=== PATIENT | female | born 1975 | race Hispanic/Latino ===

== ENCOUNTER 2018-10-29 09:51 | Observation (INO) | payer OTHER ==
[2018-10-29 10:41] LABS: Arterial Blood Carboxyhemoglob 0.9 % (0-1.5); Blood Gas Oxyhemoglobin 93.5 % (94-97); Blood O2 Saturation 95.2 % (92-98.5)
--- NOTE | 2018-10-29 11:08 | RAD REPORT ---
EXAM DESCRIPTION: RAD - Chest Pa And Lat (2 Views) - 10/29/2018 11:02 am CLINICAL HISTORY: COUGH Chest pain. COMPARISON: Chest Pa And Lat (2 Views) dated 10/17/2017; Chest Pa And Lat (2 Views) dated 10/09/2017 ; CHEST PA AND LAT 2 VIEW dated 07/28/2014; CHEST PA AND LAT 2 VIEW dated 02/05/2011 FINDINGS: The lungs are clear. The heart is normal in size. No displaced fractures. IMPRESSION: No acute or concerning finding suspected.
[2018-10-29] MEDS ORDERED: HYDROCODONE/CHLORPHEN 5 ML/OSYR ONE (11:14)
--- NOTE | 2018-10-29 12:05 | RAD REPORT ---
EXAM DESCRIPTION: CT - Chest For Pe Angio - 10/29/2018 11:46 am CLINICAL HISTORY: Chest pain. Cough;SOB COMPARISON: <Comparisons> TECHNIQUE: CT angiogram of the pulmonary arteries was performed with MIP. All CT scans are performed using dose optimization technique as appropriate and may include automated exposure control or mA/KV adjustment according to patient size. FINDINGS: No evidence of pulmonary thromboembolism. No acute aortic finding demonstrated. The lungs are clear. No significant pericardial or pleural fluid. No concerning bony finding. IMPRESSION: No evidence of pulmonary thromboembolism. No acute lung findings.
--- NOTE | 2018-10-29 12:24 | EDPHYS ---
Physician Documentation [facility] Name: Young Long Age: 43 yrs Sex: Female : 1975 Arrival Date: 10/29/2018 Time: 09:53 Bed 6 Private MD: Kofi Vizcaino E ED Physician Isael Jj HPI: 10/29 11:25 This 43 yrs old Female presents to ER via Ambulatory with complaints of Asthma snw Exacerbation, Cough. 11:25 The patient presents to the emergency department with wheezing, Current therapy: snw albuterol inhaler, oral steroids, steroid inhaler, Singulair, the patient was reported to have audible wheezing, trouble breathing. Onset: The symptoms/episode began/occurred gradually, 3 week(s) ago, and became worse today, and became persistent. Associated signs and symptoms: The patient has no apparent associated signs or symptoms. Severity of symptoms: At their worst the symptoms were mild moderate. The patient has experienced similar episodes in the past. The patient has been recently seen by a physician: the patient's primary care provider, Dr. Ramirez. Historical: - Allergies: 10:17 No Known Allergies; ss - PMHx: 10:17 Asthma; Bronchitis; ss - PSHx: 10:17 ; ss - Immunization history:: Adult Immunizations up to date, Pneumococcal vaccine is not up to date, it has been more than five years since last vaccine, Flu vaccine is not up to date. It has been more than one year since last vaccine. - Social history:: Smoking status: Patient/guardian denies using tobacco. - Ebola Screening: : Patient denies exposure to infectious person Patient denies travel to an Ebola-affected area in the 21 days before illness onset. ROS: 11:26 Constitutional: Negative for fever, chills, and weight loss, Eyes: Negative for injury, snw pain, redness, and discharge, ENT: Negative for injury, pain, and discharge, Neck: Negative for injury, pain, and swelling, Cardiovascular: Negative for chest pain, palpitations, and edema, Abdomen/GI: Negative for abdominal pain, nausea, vomiting, diarrhea, and constipation, Back: Negative for injury and pain, : Negative for injury, bleeding, discharge, and swelling, MS/Extremity: Negative for injury and deformity, Skin: Negative for injury, rash, and discoloration, Neuro: Negative for headache, weakness, numbness, tingling, and seizure. 11:26 Respiratory: Positive for cough, shortness of breath, wheezing, expiratory, of the left posterior lower lobe, right posterior middle lobe and right posterior lower lobe. Exam: 11:27 Constitutional: This is a well developed, well nourished patient who is awake, alert, snw and in no acute distress. Head/Face: Normocephalic, atraumatic. Eyes: Pupils equal round and reactive to light, extra-ocular motions intact. Lids and lashes normal. Conjunctiva and sclera are non-icteric and not injected. Cornea within normal limits. Periorbital areas with no swelling, redness, or edema. ENT: Nares patent. No nasal discharge, no septal abnormalities noted. Tympanic membranes are normal and external auditory canals are clear. Oropharynx with no redness, swelling, or masses, exudates, or evidence of obstruction, uvula midline. Mucous membranes moist. Neck: Trachea midline, no thyromegaly or masses palpated, and no cervical lymphadenopathy. Supple, full range of motion without nuchal rigidity, or vertebral point tenderness. No Meningismus. Chest/axilla: Normal chest wall appearance and motion. Nontender with no deformity. No lesions are appreciated. Cardiovascular: Regular rate and rhythm with a normal S1 and S2. No gallops, murmurs, or rubs. Normal PMI, no JVD. No pulse deficits. Respiratory: Lungs have equal breath sounds bilaterally, expiratory wheezes to auscultation. No rales, rhonchi noted. + wheezing, No increased work of breathing, no retractions or nasal flaring. Abdomen/GI: Soft, non-tender, with normal bowel sounds. No distension or tympany. No guarding or rebound. No evidence of tenderness throughout. Back: No spinal tenderness. No costovertebral tenderness. Full range of motion. Skin: Warm, dry with normal turgor. Normal color with no rashes, no lesions, and no evidence of cellulitis. MS/ Extremity: Pulses equal, no cyanosis. Neurovascular intact. Full, normal range of motion. Neuro: Awake and alert, GCS 15, oriented to person, place, time, and situation. Cranial nerves II-XII grossly intact. Motor strength 5/5 in all extremities. Sensory grossly intact. Cerebellar exam normal. Normal gait. Vital Signs: 10:17 BP 135 / 89; Pulse 85; Resp 16; Temp 98.1(TE); Pulse Ox 99% on R/A; Weight 79.38 kg; ss Height 5 ft. 4 in. (162.56 cm); Pain 9/10; 11:06 BP 118 / 79; Pulse 76; Resp 18; Pulse Ox 95% on R/A; ca1 12:15 BP 112 / 78; Pulse 71; Resp 21; Pulse Ox 95% on R/A; Pain 5/10; ca1 13:15 BP 120 / 75; Pulse 76; Resp 21; Pulse Ox 96% on R/A; ca1 14:15 BP 130 / 84; Pulse 70; Resp 21; Pulse Ox 96% on R/A; ca1 10:17 Body Mass Index 30.04 (79.38 kg, 162.56 cm) ss MDM: 10:22 Patient medically screened. snw 12:23 Data reviewed: vital signs, nurses notes. Data interpreted: Pulse oximetry: on room air snw is 95 %. Interpretation: acceptable. Counseling: I had a detailed discussion with the patient and/or guardian regarding: the historical points, exam findings, and any diagnostic results supporting the discharge/admit diagnosis, lab results, radiology results, the need for further work-up and treatment in the hospital. Physician consultation: Jesus Medina MD was called at 12:24, was contacted at 12:24, regarding admission, to the telemetry unit. observation, failed outpatient therapy. 15:31 ED course: Pt of Geri Ramirez, not Dr. Ramirez. Obs orders changed to admitting Dr. suresh Fields. 10/29 10:24 Order name: ABG; Complete Time: 11:04 snw 10/29 15:02 Order name: ABG snw 10/29 10:24 Order name: Chest Pa And Lat (2 Views) XRAY; Complete Time: 11:10 snw 12 11:14 Order name: CT Chest For PE Angio; Complete Time: 12:06 snw 10/29 15:34 Order name: ABG Arterial Blood Gas; Complete Time: 15:39 EDMS Administered Medications: 10:58 Drug: Tussionex Pennkinetic ER 5 ml Route: PO; ca1 13:35 Follow up: Response: No adverse reaction ca1 13:01 Drug: NS 0.9% 1000 ml Route: IV; Rate: 1 bolus; Site: right antecubital; ca1 Disposition: 10/30 06:38 Co-signature as Attending Physician, Isael Jj MD I agree with the assessment and brittaney plan of care. Disposition: 10/29/18 12:23 Hospitalization ordered by Mariela Fields for Observation. Preliminary diagnosis are Unspecified asthma with (acute) exacerbation - failed outpatient therapy, Hypoxemia. - Bed requested for Telemetry/MedSurg (observation). - Status is Observation. ss - Condition is Stable. - Problem is an acute exacerbation. - Symptoms are unchanged. UTI on Admission? No Signatures: Dispatcher [employer] EDMS Griselda Del Rosario Corey, MD MD cha Therrien, Shelly, PODIATRIC PHYSICIAN-C PODIATRIC PHYSICIAN-Csnw Maia Holt RN RN ss Mi Gillette RN RN ca1 Corrections: (The following items were deleted from the chart) 10/29 13:27 12:23 Hospitalization Ordered by Jesus Medina MD for Observation. Preliminary diagnosis bd is Unspecified asthma with (acute) exacerbation - failed outpatient therapy; Hypoxemia. Bed requested for Telemetry/MedSurg (observation). Status is Observation. Condition is Stable. Problem is an acute exacerbation. Symptoms are unchanged. UTI on Admission? No. snw 15:32 13:27 10/29/2018 12:23 Hospitalization Ordered by Jesus Medina MD for Observation. snw Preliminary diagnosis is Unspecified asthma with (acute) exacerbation - failed outpatient therapy; Hypoxemia. Bed requested for Telemetry/MedSurg (observation). Status is Observation. Condition is Stable. Problem is an acute exacerbation. Symptoms are unchanged. UTI on Admission? No. bd 16:01 15:32 10/29/2018 12:23 Hospitalization Ordered by Mariela Fields MD for Observation. ss Preliminary diagnosis is Unspecified asthma with (acute) exacerbation - failed outpatient therapy; Hypoxemia. Bed requested for Telemetry/MedSurg (observation). Status is Observation. Condition is Stable. Problem is an acute exacerbation. Symptoms are unchanged. UTI on Admission? No. snw
--- NOTE | 2018-10-29 12:24 | ER ---
Nurse's Notes [facility] Name: Young Long Age: 43 yrs Sex: Female : 1975 Arrival Date: 10/29/2018 Time: 09:53 Bed 6 Private MD: Kofi Vizcaino E Diagnosis: Unspecified asthma with (acute) exacerbation-failed outpatient therapy;Hypoxemia Presentation: 10/29 10:14 Presenting complaint: Patient states: cough x 3 weeks. Pt reports she has a lot of ss medication, and nothing seems to be working. Transition of care: patient was not received from another setting of care. Onset of symptoms. Onset of symptoms was October 08, 2018. Risk Assessment: Do you want to hurt yourself or someone else? Patient reports no desire to harm self or others. Initial Sepsis Screen: Does the patient meet any 2 criteria? No. Patient's initial sepsis screen is negative. Does the patient have a suspected source of infection? Yes: Productive cough/pneumonia. Care prior to arrival: None. 10:14 Method Of Arrival: Ambulatory ss 10:14 Acuity: BERTIN 3 ss Historical: - Allergies: 10:17 No Known Allergies; ss - PMHx: 10:17 Asthma; Bronchitis; ss - PSHx: 10:17 ; ss - Immunization history:: Adult Immunizations up to date, Pneumococcal vaccine is not up to date, it has been more than five years since last vaccine, Flu vaccine is not up to date. It has been more than one year since last vaccine. - Social history:: Smoking status: Patient/guardian denies using tobacco. - Ebola Screening: : Patient denies exposure to infectious person Patient denies travel to an Ebola-affected area in the 21 days before illness onset. Screenin:20 Abuse screen: Denies threats or abuse. Nutritional screening: No deficits noted. ca1 Tuberculosis screening: No symptoms or risk factors identified. Fall Risk None identified. Assessment: 10:15 General: Appears in no apparent distress. uncomfortable, Behavior is calm, cooperative. ca1 Pain: Complains of pain in back of head Pain does not radiate. Pain currently is 8 out of 10 on a pain scale. Quality of pain is described as aching, Pain began 1 day ago. Is continuous. Neuro: Level of Consciousness is awake, alert, obeys commands, Oriented to person, place, time. Cardiovascular: Heart tones S1 S2 present. Respiratory: Airway is patent Trachea midline Respiratory effort is even, unlabored, Respiratory pattern is regular, symmetrical, Breath sounds are coarse bilaterally. in left posterior upper lobe and right posterior upper lobe Breath sounds with wheezes bilaterally. in left posterior upper lobe and right posterior upper lobe. GI: Abdomen is flat, Bowel sounds present X 4 quads. Abd is soft and non tender X 4 quads. : No signs and/or symptoms were reported regarding the genitourinary system. Derm: Skin is pink, warm \T\ dry. Musculoskeletal: No signs and/or symptoms reported regarding the musculoskeletal system. 15:04 Reassessment: Report given to AMEE Blood. Tasha Whitlock NP reports that Dr. Medina has called and directed Tasha to admit patient to Dr. Fields. Dr. Fields would like to discharge patient from the ED if a repeat ABG has improved. Admission is delayed while awaiting for repeat ABG. Vital Signs: 10:17 BP 135 / 89; Pulse 85; Resp 16; Temp 98.1(TE); Pulse Ox 99% on R/A; Weight 79.38 kg; ss Height 5 ft. 4 in. (162.56 cm); Pain 9/10; 11:06 BP 118 / 79; Pulse 76; Resp 18; Pulse Ox 95% on R/A; ca1 12:15 BP 112 / 78; Pulse 71; Resp 21; Pulse Ox 95% on R/A; Pain 5/10; ca1 13:15 BP 120 / 75; Pulse 76; Resp 21; Pulse Ox 96% on R/A; ca1 14:15 BP 130 / 84; Pulse 70; Resp 21; Pulse Ox 96% on R/A; ca1 10:17 Body Mass Index 30.04 (79.38 kg, 162.56 cm) ED Course: 09:53 Patient arrived in ED. as 09:54 Kofi Vizcaino MD is Private Physician. as 10:06 Tasha Whitlock FNP-C is [facility]. snw 10:06 Isael Jj MD is Attending Physician. snw 10:13 Alejo Charles, RN is Primary Nurse. bp 10:16 Triage completed. ss 10:17 Arm band placed on right wrist. ss 10:20 Primary Nurse role handed off by Alejo Charles, RN ca1 10:20 Mi Gillette, AMEE is Primary Nurse. ca1 10:20 Placed in gown. Bed in low position. Call light in reach. Side rails up X2. ca1 11:02 Chest Pa And Lat (2 Views) XRAY In Process Unspecified. EDMS 11:22 Radiology exam delayed due to IV insertion attempt and/or patient not having eh appropriate IV at this time. 11:30 Inserted saline lock: 20 gauge in right antecubital area, using aseptic technique. ca1 11:45 CT completed. Patient tolerated procedure well. Patient moved back from CT. eh 11:46 CT Chest For PE Angio In Process Unspecified. EDMS 12:22 Jesus Medina MD is Hospitalizing Provider. snw 13:00 No provider procedures requiring assistance completed. ca1 15:32 Hospitalizing Provider role handed off by Jesus Medina MD snw 15:32 Mariela Fields MD is Hospitalizing Provider. snw 16:00 Patient admitted, IV remains in place. ss Administered Medications: 10:58 Drug: Tussionex Pennkinetic ER 5 ml Route: PO; ca1 13:35 Follow up: Response: No adverse reaction ca1 13:01 Drug: NS 0.9% 1000 ml Route: IV; Rate: 1 bolus; Site: right antecubital; ca1 Outcome: 12:23 Decision to Hospitalize by Provider. snw 16:00 Admitted to Tele accompanied by [facility], via wheelchair, room 214, with chart, Report ss called to AMEE Blood 16:00 Condition: good 16:00 Instructed on the need for admit. 16:01 Patient left the ED. ss Signatures: Dispatcher [employer] EDMS Tasha Whitlock, INNER TUBE CUTTER-C INNER TUBE CUTTER-Csnw Jeanmarie Thibodeaux Amelia as Smirch, Shelby, RN RN Alejo Charles, AMEE LUBIN bp Mi Gillette, AMEE RN ca1 Corrections: (The following items were deleted from the chart) 13:37 13:36 Abuse screen: Denies threats or abuse. ca1 ca1 13:37 13:36 Nutritional screening: No deficits noted. ca1 ca1 13:37 13:36 Tuberculosis screening: No symptoms or risk factors identified. ca1 ca1 13:37 13:36 Fall Risk None identified. ca1 ca1
[2018-10-29] MEDS ORDERED: NA CHLORIDE 0.9% 1,000 ML ONE (13:00)
[2018-10-29 15:26] LABS: Arterial Blood Carboxyhemoglob 0.9 % (0-1.5); Blood Gas Oxyhemoglobin 94.7 % (94-97); Blood O2 Saturation 96.3 % (92-98.5)
[2018-10-29] MEDS ORDERED: HYDROCODONE/APAP 5/325 MG TAB PO PRN (15:40)
[2018-10-29] MEDS ORDERED: ALBUTEROL 2.5 MG/3 ML NEB SOL NEB SCH (15:40)
[2018-10-29] MEDS ORDERED: IPRATROPIUM BROM 0.5MG/2.5ML NEB SCH (16:00)
[2018-10-29] MEDS ORDERED: IPRATROPIUM BROM 0.5MG/2.5ML NEB PRN (16:13)
[2018-10-29] MEDS ORDERED: ALBUTEROL 2.5 MG/3 ML NEB SOL NEB PRN (16:13)
--- NOTE | 2018-10-29 16:40 | P.HP ---
Certification for Inpatient Patient admitted to: Observation With expected LOS: <2 Midnights Patient will require the following post-hospital care: None Practitioner: I am a practitioner with admitting privileges, knowledge of patient current condition, hospital course, and medical plan of care. Services: Services provided to patient in accordance with Admission requirements found in Title 42 Section 412.3 of the Code of Federal Regulations Patient History Date of Service: 10/29/18 Primary Care Provider: Dr Morrow Reason for admission: SOB History of Present Illness: This is a 43-year-old female with significant past medical history of asthma who presented to the ED with the patient. Patient stated that she has been having some shortness of breath for past couple of weeks and has been getting progressively worse. Patient had a son who had viral illness and she caught something from him and have her since then she has not been able to resolve her asthma exacerbation. Patient does see Dr. Ramirez forms office. She was seen at the office possible pneumonia. Antibiotics did complete an along with the steroids that she was given as well. Patient states that she still has no resolution from diet. Patient thus had to the ER if the outpatient therapy. Patient stated that she ran out of her maintenance inhaler about 4 days ago as well and has not been able to refill it due to her insurance change. Patient states that she is very fresh treated with the asthma exacerbation and not being able to get well and get back to work. In the ER patient was seen and was noted to have increased wheezing bilaterally along with audible wheezing as well. Patient thus was admitted to the hospital for further workup and treatment of her asthma exacerbation Allergies No Known Allergies Allergy (Unverified 02/25/17 20:50) - Past Medical/Surgical History -: Asthma Past Surgical History: Reviewed- Non-Contributory - Family History Family History: Reviewed- Non-Contributory Review of Systems 10-point ROS is otherwise unremarkable Physical Examination - Vital Signs Temperature: 98.1 F Blood Pressure: 130/84 Pulse: 70 Respirations: 21 - Physical Exam General: Alert, Acute distress HEENT: Atraumatic, PERRLA, Mucous membr. moist/pink, EOMI, Sclerae nonicteric Neck: Supple, 2+ carotid pulse no bruit, No LAD, Without JVD or thyroid abnormality Respiratory: Normal air movement, Expiratory wheezes, Inspiratory wheezes Cardiovascular: Regular rate/rhythm, Normal S1 S2 Gastrointestinal: Normal bowel sounds, No tenderness Musculoskeletal: No tenderness Integumentary: No rashes Neurological: Normal gait, Normal speech, Normal strength at 5/5 x4 extr, Normal tone, Normal affect Lymphatics: No axilla or inguinal lymphadenopathy Assessment and Plan - Problems (Diagnosis) (1) Asthma exacerbation Current Visit: Yes Status: Acute Plan: Acute Asthma Exacerbation 2.2 to Viral Illness -Duonebs, Steriods and Oxygen for now -Pulmonology consulted. Awaiting reccs -Peak Flow 350 Qualifiers: Asthma severity: moderate Asthma persistence: persistent Qualified Code(s ): J45.41 - Moderate persistent asthma with (acute) exacerbation - Plan Patient will be admitted to medical-surgical floor for asthma exacerbation Discharge Plan: Home Plan to discharge in: 48 Hours - Advance Directives Does patient have a Living Will: No Does patient have a Durable POA for Healthcare: No - Code Status/Comfort Care Code Status Assessed: Yes Critical Care: No
[2018-10-29] MEDS ORDERED: INFLUENZA VACCINE (for 3y+) 0.5 ML DOSE IMVAC ONE (18:00)
[2018-10-29] MEDS ORDERED: PNEUMOCOCCAL VACCINE 0.5 ML IMVAC ONE (18:00)
[2018-10-29 19:21] LABS: Urine Appearance CLEAR; Urine Bilirubin NEGATIVE (NEG); Urine Blood NEGATIVE (NEG); Urine Color YELLOW; Urine Glucose NEGATIVE (NEG); Urine Protein NEGATIVE (NEG); Urine Specific Gravity >=1.030 (1.005-1.030); Urine Urobilinogen 0.2 mg/dL (0.2-1.0); Urine pH 6.5 (5.0-7.0)
[2018-10-29 19:31] LABS: Urine Bacteria NONE SEEN /HPF (<20); Urine Culture Reflex Order NOT NEEDED; Urine RBC NONE SEEN /HPF (NONE SEEN)
[2018-10-29] MEDS: BENZONATATE 100 MG CAP PO PRN (20:17)
[2018-10-29] MEDS: FAMOTIDINE 20 MG TAB PO SCH (20:17)
[2018-10-29] MEDS: ALBUTEROL 2.5 MG/3 ML NEB SOL NEB PRN (20:47)
[2018-10-29] MEDS: IPRATROPIUM BROM 0.5MG/2.5ML NEB PRN (20:47)
[2018-10-29] MEDS ORDERED: MONTELUKAST 10 MG TAB PO SCH (21:00)
[2018-10-29] MEDS ORDERED: HYDROCODONE/CHLORPHEN 5 ML/OSYR PO ONE (23:23)
[2018-10-29] MEDS ORDERED: CETIRIZINE HCL 5 MG TABLET PO PRN (23:32)
[2018-10-30] MEDS: ALBUTEROL 2.5 MG/3 ML NEB SOL NEB PRN ×2 (03:05→09:35)
[2018-10-30] MEDS: IPRATROPIUM BROM 0.5MG/2.5ML NEB PRN ×2 (03:05→09:35)
[2018-10-30] MEDS ORDERED: METHYLPREDNISOLONE 40 MG INJ IV ONE (03:47)
[2018-10-30] MEDS ORDERED: MORPHINE 2 MG/ML SYR IV ONE (03:48)
[2018-10-30] MEDS ORDERED: NA CHLORIDE 0.9% 1,000 ML IV SCH (04:00)
[2018-10-30 05:49] LABS: Absolute Lymphocytes (CBC) 2.1 K/uL (0.7-4.9); Absolute Monocytes 0.6 K/uL (0.1-1.3); Absolute Neutrophil 7.3 K/uL (1.8-8.0); Basophils % 0.2 % (0-1.3); Eosinophils % 0.5 % (0-4.4); Hematocrit 38.7 % (36.0-45.0); Lymphocytes % 20.7 % (15.3-44.8); MCV 95.9 fL (80-100); MPV 7.8 fL (7.6-11.3); Monocytes % 6.2 % (3.3-12.3); RBC Red Blood Cell Count 4.03 M/uL (3.86-4.86)
[2018-10-30 06:14] LABS: Albumin 3.4 g/dL (3.4-5.0); Bilirubin Total 0.4 mg/dL (0.2-1.0); Protein, Total 6.6 g/dL (6.4-8.2)
[2018-10-30 06:17] LABS: Potassium 2.9 mmol/L (3.5-5.1)
[2018-10-30] MEDS ORDERED: PANTOPRAZOLE 40MG TABLET PO SCH (07:30)
[2018-10-30] MEDS ORDERED: ASPIRIN 325 MG TAB PO SCH (09:00)
[2018-10-30] MEDS ORDERED: predniSONE 20 MG TAB PO SCH (09:00)
[2018-10-30] MEDS: BENZONATATE 100 MG CAP PO PRN (09:44)
[2018-10-30] MEDS: FAMOTIDINE 20 MG TAB PO SCH (09:44)
[2018-10-30] MEDS ORDERED: POTASSIUM CL SA 10 MEQ TAB PO ONE (09:59)
[2018-10-30] MEDS ORDERED: KCL 20 MEQ/100 mL IVPB 20 MEQ/100 ML BAG IV SCH (10:00)
--- NOTE | 2018-10-30 14:17 | P.SSS ---
Patient History Date of Service: 10/30/18 Primary Care Provider: Dr Morrow Reason for admission: SOB History of Present Illness: This is a 43-year-old female with significant past medical history of asthma who presented to the ED with the patient. Patient stated that she has been having some shortness of breath for past couple of weeks and has been getting progressively worse. Patient had a son who had viral illness and she caught something from him and have her since then she has not been able to resolve her asthma exacerbation. Patient does see Dr. Ramirez forms office. She was seen at the office possible pneumonia. Antibiotics did complete an along with the steroids that she was given as well. Patient states that she still has no resolution from diet. Patient thus had to the ER if the outpatient therapy. Patient stated that she ran out of her maintenance inhaler about 4 days ago as well and has not been able to refill it due to her insurance change. Patient states that she is very fresh treated with the asthma exacerbation and not being able to get well and get back to work. In the ER patient was seen and was noted to have increased wheezing bilaterally along with audible wheezing as well. Patient thus was admitted to the hospital for further workup and treatment of her asthma exacerbation Allergies No Known Allergies Allergy (Unverified 02/25/17 20:50) Home Medications: Montelukast Sodium [Singulair] 10 mg PO DAILY 10/29/18 Sumatriptan [Imitrex*] 50 mg PO PRN PRN 10/29/18 Albuterol Sulfate [Albuterol Sulfate 0.083% Neb Soln] 3 ml IN Q4HR PRN #1 ml 09/07 Albuterol Sulfate [Proair Hfa] 8.5 gm IH Q6HR PRN #1 hfa.aer.ad 10/30/18 Budesonide/Formoterol Fumarate [Symbicort 160-4.5 Mcg Inhaler] 2 puff IH BID #1 hfa.aer.ad 10/30/18 Cetirizine HCl [Zyrtec] 10 mg PO DAILY PRN #30 tablet 10/30/18 Ipratropium Sheridan 1 ml IN TID PRN #1 solution 10/30/18 Montelukast [Singulair*] 10 mg PO BEDTIME #30 tab 10/30/18 predniSONE [Prednisone*] 40 mg PO DAILY #10 tab 10/30/18 - Past Medical/Surgical History Has patient received pneumonia vaccine in the past: No Diabetic: No -: Asthma -: bronchitis -: umbilicus hernia -: c section - Family History Family History: Reviewed- Non-Contributory - Family History Mother -: Heart disease, Lung disease, Cancer Father -: Heart disease, Diabetes, Cancer Notes: both are smokers - Social History Smoking Status: Former smoker Alcohol use: No CD- Drugs: No Caffeine use: Yes Place of Residence: Home Review of Systems 10-point ROS is otherwise unremarkable Physical Examination - Vital Signs Temperature: 97.7 F Blood Pressure: 113/75 Pulse: 80 Respirations: 18 Pulse Ox (%): 98 - Physical Exam General: Alert, In no apparent distress HEENT: Atraumatic, PERRLA, Mucous membr. moist/pink, EOMI, Sclerae nonicteric Neck: Supple, 2+ carotid pulse no bruit, No LAD, Without JVD or thyroid abnormality Respiratory: Clear to auscultation bilaterally, Normal air movement Cardiovascular: Regular rate/rhythm, Normal S1 S2 Gastrointestinal: Normal bowel sounds, No tenderness Musculoskeletal: No tenderness Integumentary: No rashes Neurological: Normal gait, Normal speech, Normal strength at 5/5 x4 extr, Normal tone, Normal affect Lymphatics: No axilla or inguinal lymphadenopathy - Diagnosis (Problem(s)) (1) Asthma exacerbation Onset Date: 10/30/18 Current Visit: Yes Status: Resolved Plan: Now Resolved. Qualifiers: Asthma severity: moderate Asthma persistence: persistent Qualified Code(s ): J45.41 - Moderate persistent asthma with (acute) exacerbation Treatment Summary: Overall during the hospital stay patient remained stable The patient was initially admitted to the hospital for what appeared to be acute asthma exacerbation. After admission was started on albuterol and ipratropium nebs airs every 6 hr along with steroids and oxygen. Patient was not requiring oxygen that she was weaned off to room air. Initially on physical exam patient did appear to have wheezing during expiration. Which did resolve after couple of treatments. Patient at that time was educated on asthma action plan and the need for her to continue taking any inhalers. Patient on admission initially mentioned that she takes Advair on a as needed basis however when told that she needs to take it every day she medially changed it to [facility] that she does take out where the. Upon further questioning from the nurse patient stated that she has been out of Advair inhaler for past 3 -4 days and has not taken it. To confirm recall the pharmacy who stated the patient has not picked up her Advair prescription for over 3 months. Patient stated that she follows up with a software applications developer in [facility] that she does not like the local software applications developer here. Patient apparently is supposed to be on Advair b.i.d. along with pro air and rescue inhaler and nebulizing treatment along with oral steroids. However per pharmacy patient has not picked up any of her prescription. Patient stated that she has picked up her prescription from the pharmacy. Patient states that ever since her child has been sick at home with viral illness and she got the acute exacerbation she has not been able to get over at. While here in the hospital patient has peak flow was 350 after couple of neb treatments for her wheezing had resolved patient was doing much better than before and did not appear to be in further acute asthma exacerbation. At that time patient was notified of the plan to be discharged home. Patient became very upset that the discharge plan and she felt like nothing was taking care for her here. Patient was educated that she was admitted to the hospital for acute asthma exacerbation and now that her acute phase has resolved shaking continue inhalers at home along with oral steroids in a tapering dose. Patient continued to mentioned that she still has hoarseness in her voice. Patient at that time was educated the patient needs to follow up with the primary care doctor to evaluate for hoarseness and the possibility of a differential diagnosis of reflux versus vocal cord pathology. Patient stated that she has never had reflux and does not think that this is reflux and thinks that this is her asthma that is making it worse. Patient again was educated extensively and imaging study and lab work was discussed in detail with the patient. Patient at that time stated that she sometimes feel that her throat is closing up and she starts having chest pressure and starts noticing sweating. Patient was notified that this could be signs and symptoms of panic attack and that she needs to take her anxiety medication. Patient stated that is something that she has been IV and thinks that it is her asthma needs to stay here in the hospital for further treatment. Patient then proceeded to also tell me that she has not had Advair due to insurance not able to delayed and it being expensive. I contacted patient's primary care doctor along with the software applications developer who both mentioned that patient has not had appropriate followup for refills of any of the medications over. When questioned patient stated that she has followed up but has not been able to get any appointment recently. PCP and software applications developer were called again and no point was confirmed. Patient was notified about the appointment and was given prescription for Advair steroids pro where and nebulizers. Patient then was discharged home under stable condition. He once the discharge nurse went in to discharge the patient with discharge paperwork patient continued to state "I am not finding any discharge paperwork as the doctor is a douche bag and does not know what she is talking about" she also continued to state" my night respiratory therapist told me that we did not appropriate lab work and the doctor does not know what she is talking about" she further continued to state "I do not want and be treated with that douche bag again". The nurse asked the patient if she wanted the doctor to come back in and explained at that time patient refused and continued to leave to be discharged home. I also did reach out to pulmonology Dr. arvizu to see if there is anything else we need to do [facility] demise patient care. Pulmonology at that time had no recommendation and stated that we have rhabdomyolysis her medication she just needs to be compliant with her medication for her 0 to feel better. Patient's prescription was sent over to the pharmacy patient was notified and thus discharged home under stable condition. - Disposition Disposition: ROUTINE DISCHARGE Condition: GOOD Diet: Regular Activity: Ad mary
== END 2018-10-30 12:00 | disposition home or self-care (01) ==
LOC: ER 09:51 → ERHOLD 12:26 → 2ND 15:11
PROVIDERS: ADMIT Family Medicine; ATTEND Family Medicine
DX: J45.41 Moderate persistent asthma with (acute) exacerbation (principal)
CPT/HCPCS: 36415; 71046; 71275; 80053; 81001; 82805; 82962; 85025; 94010; 94640; 99285; G0378; J2270; J2920; J7030; J7512; Q9967

== ENCOUNTER 2020-04-14 16:33 | Emergency (ER) | payer BC, OTHER ==
--- OUTSIDE RECORDS SUMMARY | 2020-04-14 16:35 | XMS REPORT | Continuity of Care Document ---
:1975 Author Organization [employer] Care Team Providers Name Role Phone [employer] Unavailable Un available Problems Problem Status Onset Classification Date Comments Sourc e Date Reported Subjective Active 01/29/2014 [facility] Tinnitus Laryngospasm Active 01/29/2014 [facility] Allergic Active 01/29/2014 [facility] Rhinitis Due To Pollen Medications Medication Details Route Status Patient Ordering Order Source Instructions Provider Date Astepro 0.15 ; Start Active [facility] % Nasal Date: 0[facility] Solution 01/29/2014 ; End Date: (Active) Lexapro TABS (Active) Active [facility] ZyrTEC (Active) Active [facility] Benadryl TABS (Active) Active [facility] Allergies, Adverse Reactions, Alerts Substance Category Reaction Severity Reaction Status Date Comments S ource type Reported No Known drug drug Active [facility] allergy allergy [facility] Allergies Immunizations No Data Provided for This Section Results No Data Provided for This Section Pathology Reports No Data Provided for This Section Diagnostic Reports No Data Provided for This Section Consultation Notes No Data Provided for This Section Discharge Summaries No Data Provided for This Section History and Physicals No Data Provided for This Section Vital Signs No Data Provided for This Section Encounters Location Location Encounter Encounter Reason Attending ADM MD Stat Source Details Type Number For Provider Date Date Visit AUDIT [id number] 01/29 /2013 [facility] Procedures No Data Provided for This Section Assessment and Plan No Data Provided for This Section Plan of Care No Data Provided for This Section Social History Social History Date Source Never Used Drugs 01/29/2014 [facility] (Active) Never Drank Alcohol (Active) Never A Smoker (Active) Family History Value Date Source Family history of Allergies 01/29/2014 [facility] (Active) Family history of Asthma (V17.5); (Active) Family history of Cancer (Active) Family history of Heart Disease (V17.49); (Active) Advance Directives Order Name Results Value Date Source Advance Directives Advance Directives No Advance 01/29/2014 [facility] Directives available. Functional Status No Data Provided for This Section
--- NOTE | 2020-04-14 17:36 | RAD REPORT ---
EXAM DESCRIPTION: RAD - Foot Right 3 View - 04/14/2020 5:23 pm CLINICAL HISTORY: pain lateral distal foot;Pain COMPARISON: No comparisons FINDINGS: No fracture, dislocation or radiopaque foreign body seen.
[2020-04-14 18:24] VITALS: BP 139/75; TEMP 97.5; O2SAT 99
--- NOTE | 2020-04-21 12:28 | EDPHYS ---
Physician Documentation [facility] Name: Young Long Age: 45 yrs Sex: Female : 1975 Arrival Date: 04/14/2020 Time: 16:36 Bed 14 Private MD: ED Physician James Silveira HPI: 04/14 16:53 This 45 yrs old Female presents to ER via Ambulatory with complaints of Foot rn Pain. 16:53 The patient presents with pain, that is acute. The complaints affect the right foot. rn Onset: The symptoms/episode began/occurred 1 week(s) ago. Modifying factors: The symptoms are alleviated by nothing, the symptoms are aggravated by weight bearing, movement, wearing shoes. Severity of symptoms: At their worst the symptoms were moderate, in the emergency department the symptoms have improved. The patient has not experienced similar symptoms in the past. Reports 1 week of right foot pain, no acute injury, then stepped on rock and felt increased pain. No fever. No swelling, + pain with ambulation. . DIGESTER HAND: 16:43 LMP N/A - control method jl7 Historical: - Allergies: 16:43 No Known Allergies; jl7 - Home Meds: 16:43 Celebrex Oral [Active]; Zyrtec 10 mg Oral tab 1 tab once daily [Active]; duloxetine jl7 oral oral [Active]; Singulair Oral [Active]; cyclobenzaprine 10 mg Oral tab [Active]; Advair Diskus Inhl [Active]; Imitrex Oral [Active]; - PMHx: 16:43 Asthma; Bronchitis; Arthritis; Migraines; jl7 - PSHx: 16:43 ; jl7 - Immunization history:: Adult Immunizations up to date. - Social history:: Smoking status: Patient denies any tobacco usage or history of. - Family history:: not pertinent. - Hospitalizations: : No recent hospitalization is reported. ROS: 16:53 Constitutional: Negative for fever, chills, and weight loss, MS/Extremity: + right foot rn pain Skin: Negative for injury, rash, and discoloration, Neuro: Negative for weakness, numbness, tingling Exam: 16:53 Constitutional: This is a well developed, well nourished patient who is awake, alert, rn and in no acute distress. MS/ Extremity: Pulses equal, no cyanosis. Neurovascular intact. Full, normal range of motion. Equal circumference. + mild tenderness right distal foot along distal 4th/5th metatarsals. No open wounds. No swelling. Vital Signs: 16:39 BP 138 / 88; Pulse 90; Resp 19; Temp 97.2; Pulse Ox 98% ; Weight 86.18 kg; Height 5 ft. jl7 4 in. (162.56 cm); Pain 8/10; 18:00 BP 139 / 75; Pulse 87; Resp 16; Temp 97.5; Pulse Ox 99% ; bp 16:39 Body Mass Index 32.61 (86.18 kg, 162.56 cm) jl7 MDM: 16:44 Patient medically screened. rn 17:49 Differential diagnosis: fracture, sprain, foreign body, arthritis. Data reviewed: vital rn signs, nurses notes, radiologic studies, plain films, and as a result, I will discharge patient. Counseling: I had a detailed discussion with the patient and/or guardian regarding: the historical points, exam findings, and any diagnostic results supporting the discharge/admit diagnosis, radiology results, the need for outpatient follow up, to return to the emergency department if symptoms worsen or persist or if there are any questions or concerns that arise at home. Special discussion: I discussed with the patient/guardian in detail that at this point there is no indication for admission to the hospital. It is understood, however, that if the symptoms persist or worsen the patient needs to return immediately for re-evaluation. 17:49 Test interpretation: by ED physician or midlevel provider: plain radiologic studies, rn Xray right foot negative for fracture/dislocation/foreign body. 04/14 16:52 Order name: XRAY Foot RIGHT 3 View; Complete Time: 17:46 rn Administered Medications: No medications were administered Disposition: 04/14/20 17:50 Discharged to Home. Impression: Pain in right foot. - Condition is Stable. - Discharge Instructions: Musculoskeletal Pain, Pain Without a Known Cause, Foot Pain. - Medication Reconciliation Form, Thank You Letter, Antibiotic Education, Prescription Opioid Use form. - Follow up: Private Physician; When: As needed; Reason: Recheck today's complaints, Re-evaluation by your physician. - Problem is an ongoing problem. - Symptoms are unchanged. Signatures: Dispatcher [employer] EDMS James Silveira MD MD rn Santacruz, Jahala, RN RN jl7 Alejo Charles, RN RN bp Corrections: (The following items were deleted from the chart) 18:02 17:50 04/14/2020 17:50 Discharged to Home. Impression: Pain in right foot. Condition is bp Stable. Forms are Medication Reconciliation Form, Thank You Letter, Antibiotic Education, Prescription Opioid Use. Follow up: Private Physician; When: As needed; Reason: Recheck today's complaints, Re-evaluation by your physician. Problem is an ongoing problem. Symptoms are unchanged. rn
--- NOTE | 2020-04-21 12:28 | ER ---
Nurse's Notes [facility] Name: Young Long Age: 45 yrs Sex: Female : 1975 Arrival Date: 04/14/2020 Time: 16:36 Bed 14 Private MD: Diagnosis: Pain in right foot Presentation: 04/14 16:39 Chief complaint: Patient states: Right foot pain x 1 week, stepped on a rock on jl7 Tuesday and pain has increased. Coronavirus screen: Proceed with normal triage. Ebola Screen: No symptoms or risks identified at this time. Initial Sepsis Screen: Does the patient meet any 2 criteria? No. Patient's initial sepsis screen is negative. Does the patient have a suspected source of infection? No. Patient's initial sepsis screen is negative. Risk Assessment: Do you want to hurt yourself or someone else? Patient reports no desire to harm self or others. Onset of symptoms was April 12, 2020. Care prior to arrival: None. 16:39 Method Of Arrival: Ambulatory jl7 16:39 Acuity: BERTIN 4 jl7 Triage Assessment: 16:43 General: Appears in no apparent distress. uncomfortable, Behavior is calm, cooperative, jl7 appropriate for age. Pain: Complains of pain in right foot. ACID CHANGER: 16:43 LMP N/A - control method jl7 Historical: - Allergies: 16:43 No Known Allergies; jl7 - Home Meds: 16:43 Celebrex Oral [Active]; Zyrtec 10 mg Oral tab 1 tab once daily [Active]; duloxetine jl7 oral oral [Active]; Singulair Oral [Active]; cyclobenzaprine 10 mg Oral tab [Active]; Advair Diskus Inhl [Active]; Imitrex Oral [Active]; - PMHx: 16:43 Asthma; Bronchitis; Arthritis; Migraines; jl7 - PSHx: 16:43 ; jl7 - Immunization history:: Adult Immunizations up to date. - Social history:: Smoking status: Patient denies any tobacco usage or history of. - Family history:: not pertinent. - Hospitalizations: : No recent hospitalization is reported. Screenin:46 Abuse screen: Denies threats or abuse. Denies injuries from another. Nutritional bp screening: No deficits noted. Tuberculosis screening: No symptoms or risk factors identified. Fall Risk None identified. Assessment: 16:45 General: SEE TRIAGE NOTE. bp 18:00 Reassessment: PT D/C HOME AMBULATORY, DX WITH RIGHT FOOT PAIN. bp Vital Signs: 16:39 BP 138 / 88; Pulse 90; Resp 19; Temp 97.2; Pulse Ox 98% ; Weight 86.18 kg; Height 5 ft. jl7 4 in. (162.56 cm); Pain 8/10; 18:00 BP 139 / 75; Pulse 87; Resp 16; Temp 97.5; Pulse Ox 99% ; bp 16:39 Body Mass Index 32.61 (86.18 kg, 162.56 cm) jl7 ED Course: 16:36 Patient arrived in ED. ag5 16:41 Triage completed. jl7 16:43 Arm band placed on right wrist. jl7 16:44 Alejo Charles, RN is Primary Nurse. bp 16:44 James Silveira MD is Attending Physician. rn 16:46 Patient has correct armband on for positive identification. Bed in low position. Call bp light in reach. Side rails up X2. 17:26 XRAY Foot RIGHT 3 View In Process Unspecified. EDMS 18:00 No provider procedures requiring assistance completed. Patient did not have IV access bp during this emergency room visit. Administered Medications: No medications were administered Outcome: 17:50 Discharge ordered by . rn 18:00 Discharged to home ambulatory. bp 18:00 Condition: stable 18:00 Discharge instructions given to patient, Instructed on discharge instructions, follow up and referral plans. Demonstrated understanding of instructions, follow-up care. 18:02 Patient left the ED. bp Signatures: Dispatcher [employer] EDFL James Silveira MD MD rn Leal, Jahala RN RN jl7 Alejo Charles, RN RN Daisy Lerner 5
== END 2020-04-14 18:02 | disposition home or self-care (01) ==
LOC: ER 16:33
DX: M79.671 Pain in right foot (principal)
CPT/HCPCS: 99283

== ENCOUNTER 2020-05-23 11:15 | Emergency (ER) | payer BC, OTHER ==
--- OUTSIDE RECORDS SUMMARY | 2020-05-23 11:49 | XMS REPORT | Continuity of Care Document ---
:1975 Author Organization [employer] Care Team Providers Name Role Phone [employer] Unavailable Un available Problems Problem Status Onset [...] Location Location Encounter Encounter Reason Attending ADM IA Stat Source Details Type Number For Provider Date Date Visit AUDIT [id number] 01/29 /2013 [facility] Procedures No Data Provided for This Section Assessment and Plan No Data Provided for This Section Plan of Care No Data Provided for This Section Social History Social History Date Source Never Used Drugs 01/29/2014 [facility] (Active) Never Drank Alcohol (Active) Never A Smoker (Active) Family History Value Date Source Family history of Allergies 01/29/2014 [facility] (Active) Family history of Asthma (V17.5); (Active) Family history of Cancer (Active) Family history of Heart Disease (V17.49); (Active) Advance Directives Order Name Results Value Date Source Advance Directives Advance Directives No Advance 01/29/2014 [facility] Directives available. Functional Status No Data Provided for This Section
--- NOTE | 2020-05-23 13:29 | ER ---
Nurse's Notes [facility] Name: Young Long Age: 45 yrs Sex: Female : 1975 Arrival Date: 05/23/2020 Time: 11:16 Bed 7 Private MD: Diagnosis: Acute upper respiratory infection, unspecified-COVID - 19;Coronavirus infection, unspecified Presentation: 05/23 11:46 Chief complaint: Patient states: They called me this morning and told me I was positive ss for COVID. Seen at urgent care Tuesday and swabbed. Pt reports that the doctor told her to come get treatment since she has a history of asthma. Reports "painful lungs", body aches, fatigue x 1 week. Coronavirus screen: Surgical mask placed on patient. Patient moved to private room, placed in contact and droplet isolation with eye protection until further assessment. Prior COVID test collected on: 2019. Ebola Screen: Patient denies exposure to infectious person. Patient denies travel to an Ebola-affected area in the 21 days before illness onset. Initial Sepsis Screen: Does the patient meet any 2 criteria? HR > 90 bpm. Does the patient have a suspected source of infection? No. Patient's initial sepsis screen is negative. Risk Assessment: Do you want to hurt yourself or someone else? Patient reports no desire to harm self or others. Onset of symptoms was May 17, 2020. 11:46 Method Of Arrival: Ambulatory ss 11:46 Acuity: BERTIN 3 ss Historical: - Allergies: 11:50 No Known Allergies; ss - PMHx: 11:50 Arthritis; Asthma; Bronchitis; Migraines; ss - PSHx: 11:50 ; ss - Immunization history:: Adult Immunizations up to date. - Social history:: Smoking status: Patient denies any tobacco usage or history of. Patient/guardian denies using alcohol, street drugs, The patient lives with family. - Family history:: not pertinent. Screenin:20 Abuse screen: Denies threats or abuse. Nutritional screening: No deficits noted. em Tuberculosis screening: No symptoms or risk factors identified. Fall Risk None identified. Assessment: 13:15 General: Appears in no apparent distress. comfortable, Behavior is calm, cooperative, em appropriate for age, Denies fever. Pain: Complains of pain in chest. Neuro: Level of Consciousness is awake, alert, obeys commands, Oriented to person, place, time, situation, Appropriate for age. Cardiovascular: Rhythm is regular. Respiratory: Reports cough that is Airway is patent Respiratory effort is even, unlabored, Respiratory pattern is regular, symmetrical, Breath sounds are clear. GI: Abdomen is flat. Derm: Skin is intact, is healthy with good turgor, Skin is pink, warm \\T\\ dry. Musculoskeletal: Capillary refill < 3 seconds, Range of motion: intact in all extremities. 13:50 Reassessment: pt request chest x-ray prior to being discharged, provider notified. em Vital Signs: 11:46 BP 128 / 97; Pulse 96; Resp 16; Temp 97.6(TE); Pulse Ox 100% on R/A; Weight 85.28 kg; ss Height 5 ft. 4 in. (162.56 cm); 11:46 Body Mass Index 32.27 (85.28 kg, 162.56 cm) ED Course: 11:16 Patient arrived in ED. fj1 11:49 Triage completed. 11:50 Arm band placed on left wrist. 12:45 Ambrocio Grijalva MD is Attending Physician. ma2 12:54 Chase White, RN is Primary Nurse. em 13:20 Patient has correct armband on for positive identification. Bed in low position. Call em light in reach. Side rails up X2. Pulse ox on. NIBP on. 14:18 Chest Single View XRAY In Process Unspecified. EDMS 14:56 No provider procedures requiring assistance completed. em 14:56 Patient did not have IV access during this emergency room visit. em Administered Medications: 13:36 Drug: TORadol 60 mg Route: IM; Site: left gluteus; em 14:38 Follow up: Response: No adverse reaction em Outcome: 13:29 Discharge ordered by . ma2 14:56 Discharged to home ambulatory. em 14:56 Condition: good 14:56 Discharge instructions given to patient, Instructed on discharge instructions, follow up and referral plans. medication usage, Demonstrated understanding of instructions, follow-up care, medications, Prescriptions given X 4. 14:59 Patient left the ED. em Signatures: Dispatcher [employer] EDChase Jeter RN RN em Smirch, Shelby, RN RN Ambrocio Grijalva MD MD ma2 Raul Spicer fj1
--- NOTE | 2020-05-23 13:29 | EDPHYS ---
Physician Documentation [facility] Name: Young Long Age: 45 yrs Sex: Female : 1975 Arrival Date: 05/23/2020 Time: 11:16 Bed 7 Private MD: ED Physician Ambrocio Grijalva HPI: 05/23 13:26 This 45 yrs old Female presents to ER via Ambulatory with complaints of ma2 Breathing Difficulty, COVID POS. 13:26 This 45 yrs old Female presents to ER via Ambulatory with complaints of ma2 Breathing Difficulty, COVID POS. 13:26 The patient has shortness of breath during heavy activity. Onset: The symptoms/episode ma2 began/occurred gradually, 1 day(s) ago. Associated signs and symptoms: Pertinent negatives: non-productive cough, diaphoresis, hemoptysis. Severity of symptoms: At their worst the symptoms were mild in the emergency department the symptoms are unchanged. The patient has not experienced similar symptoms in the past. positive for covid-19. Historical: - Allergies: 11:50 No Known Allergies; ss - PMHx: 11:50 Arthritis; Asthma; Bronchitis; Migraines; ss - PSHx: 11:50 ; ss - Immunization history:: Adult Immunizations up to date. - Social history:: Smoking status: Patient denies any tobacco usage or history of. Patient/guardian denies using alcohol, street drugs, The patient lives with family. - Family history:: not pertinent. ROS: 13:26 Constitutional: Negative for fever, chills, and weight loss. ma2 13:26 All other systems are negative. Exam: 13:26 Constitutional: This is a well developed, well nourished patient who is awake, alert, ma2 and in no acute distress. Head/Face: Normocephalic, atraumatic. Eyes: Pupils equal round and reactive to light, extra-ocular motions intact. Lids and lashes normal. Conjunctiva and sclera are non-icteric and not injected. Cornea within normal limits. Periorbital areas with no swelling, redness, or edema. ENT: Nares patent. No nasal discharge, no septal abnormalities noted. Tympanic membranes are normal and external auditory canals are clear. Oropharynx with no redness, swelling, or masses, exudates, or evidence of obstruction, uvula midline. Mucous membranes moist. Neck: Trachea midline, no thyromegaly or masses palpated, and no cervical lymphadenopathy. Supple, full range of motion without nuchal rigidity, or vertebral point tenderness. No Meningismus. Chest/axilla: Normal chest wall appearance and motion. Nontender with no deformity. No lesions are appreciated. Cardiovascular: Regular rate and rhythm with a normal S1 and S2. No gallops, murmurs, or rubs. Normal PMI, no JVD. No pulse deficits. Respiratory: Lungs have equal breath sounds bilaterally, clear to auscultation and percussion. No rales, rhonchi or wheezes noted. No increased work of breathing, no retractions or nasal flaring. Abdomen/GI: Soft, non-tender, with normal bowel sounds. No distension or tympany. No guarding or rebound. No evidence of tenderness throughout. Back: No spinal tenderness. No costovertebral tenderness. Full range of motion. Skin: Warm, dry with normal turgor. Normal color with no rashes, no lesions, and no evidence of cellulitis. MS/ Extremity: Pulses equal, no cyanosis. Neurovascular intact. Full, normal range of motion. Neuro: Awake and alert, GCS 15, oriented to person, place, time, and situation. Cranial nerves II-XII grossly intact. Motor strength 5/5 in all extremities. Sensory grossly intact. Cerebellar exam normal. Normal gait. Vital Signs: 11:46 BP 128 / 97; Pulse 96; Resp 16; Temp 97.6(TE); Pulse Ox 100% on R/A; Weight 85.28 kg; ss Height 5 ft. 4 in. (162.56 cm); 11:46 Body Mass Index 32.27 (85.28 kg, 162.56 cm) ss MDM: 12:45 Patient medically screened. ma2 13:26 Differential diagnosis: Anxiety Reaction Bronchitis reactive airway disease. Antibiotic ma2 administration: The patient is discharged and will get outpatient antibiotics. Data reviewed: vital signs, nurses notes. ED course: she declined steroid injection. 13:31 ED course: no expiratory or inspiratory strider. ma2 05/23 13:55 Order name: Chest Single View XRAY; Complete Time: 14:48 ma2 Administered Medications: 13:36 Drug: TORadol 60 mg Route: IM; Site: left gluteus; em 14:38 Follow up: Response: No adverse reaction em Disposition: 05/23/20 13:29 Discharged to Home. Impression: Acute upper respiratory infection, unspecified - COVID - 19, Coronavirus infection, unspecified. - Condition is Stable. - Discharge Instructions: Laryngitis, COVID-19. - Prescriptions for Xopenex 1.25 mg/3 mL Inhalation Solution for Nebulization - inhale 1 unit by NEBULIZATION route every 8 hours As needed; 1 box. Albuterol Sulfate 2.5 mg /3 mL (0.083 %) Inhalation Solution for Nebulization - inhale 1 unit by NEBULIZATION route every 8 hours As needed; 1 box. Zithromax Z- Adam 250 mg Oral Tablet - take 1 tablet by ORAL route as directed for 5 days Day 1 - take two (2) tablets one time. Day 2, 3, 4 , 5 take one (1) tablet once daily.; 6 tablet. Medrol (Adam) 4 mg Oral Tablets, Dose Pack - take 1 tablet by ORAL route as directed - follow package instructions; 1 packet. - Medication Reconciliation Form, Thank You Letter, Antibiotic Education, Prescription Opioid Use form. - Follow up: Private Physician; When: Tomorrow; Reason: Continuance of care. Signatures: Dispatcher [employer] Chase Hodge RN RN em Smirch, Shelby, RN RN Ambrocio Grijalva MD MD ma2 Corrections: (The following items were deleted from the chart) 14:59 13:29 05/23/2020 13:29 Discharged to Home. Impression: Acute upper respiratory em infection, unspecified - COVID - 19; Coronavirus infection, unspecified. Condition is Stable. Forms are Medication Reconciliation Form, Thank You Letter, Antibiotic Education, Prescription Opioid Use. Follow up: Private Physician; When: Tomorrow; Reason: Continuance of care. ma2
[2020-05-23] MEDS ORDERED: KETOROLAC 30 MG/ML INJ ONE (13:30)
--- NOTE | 2020-05-23 14:46 | RAD REPORT ---
EXAM DESCRIPTION: RAD - Chest Single View - 05/23/2020 2:18 pm CLINICAL HISTORY: CONGESTION, history of positive COVID-19 test COMPARISON: Chest exam October 2018 TECHNIQUE: AP portable chest image was obtained 05/23/2020 2:18 pm . FINDINGS: No consolidation, ground-glass opacification or other acute lung parenchymal finding ident ifiable. No chest film findings to indicate COVID-19 pneumonia. Interstitial pattern matches comparis on. Heart and vasculature are normal. No measurable pleural effusion and no pneumothorax. No acute bony abnormality seen. No acute aortic findings suspected. IMPRESSION: No acute cardiopulmonary process.
[2020-05-23 15:04] VITALS: BP 128/97; TEMP 97.6; O2SAT 100
== END 2020-05-23 14:59 | disposition home or self-care (01) ==
LOC: ER 11:15
DX: U07.1 COVID-19 (principal); J06.9 Acute upper respiratory infection, unspecified
CPT/HCPCS: 71045; 96372; 99284